=== PATIENT | male | born 1945 | race Hispanic/Latino ===

== ENCOUNTER 2019-02-15 17:00 | Observation (INO) | payer MEDICARE ==
[2019-02-15] MEDS ORDERED: Povidone Iodine Oint 10% Foilpak UD TOP ONE (17:55)
[2019-02-15] MEDS ORDERED: Lidocaine/Epi 1% 1:100000 20 ML IJ STA (17:55)
[2019-02-15] MEDS ORDERED: Povidone Iodine Topical 10% Sol ONE (17:56)
[2019-02-15] MEDS ORDERED: Lidocaine 1% w Epi 1:100,000 Inj ONE (17:56)
[2019-02-15 18:32] LABS: BASO # 0.1 K/uL (0.0-0.2); BASO % 0.7 % (0.0-2.0); EOS # 0.1 K/uL (0.0-0.7); HEMOGLOBIN 17.2 g/dL (12.0-18.0); LYMPH # 0.8 K/uL (1.0-4.3); LYMPH % 9.6 % (20.0-40.0); MEAN CELL VOLUME 96.9 fl (80.0-94.0); MEAN CORPUSCULAR HEMOGLOBIN 32.7 pg (27.0-31.0); MEAN CORPUSCULAR HGB CONC 33.8 g/dL (33.0-37.0); MEAN PLATELET VOLUME 8.1 fl (7.2-11.7); MONO # 0.8 K/uL (0.0-0.8); MONO % 9.4 % (0.0-10.0); NEUT # 6.5 K/uL (1.8-7.0); NEUT % 79.3 % (50.0-75.0); NRBC % 0.2 % (0.0-0.0); PLATELET COUNT 205 K/uL (130-400); RBC 5.26 Mil/uL (4.40-5.90); RED CELL DISTRIBUTION WIDTH 14.6 % (11.5-14.5); WHITE BLOOD COUNT 8.2 K/uL (4.8-10.8)
[2019-02-15 18:41] LABS: INR 2.5; PROTHROMBIN TIME 28.3 Seconds (9.8-13.1)
[2019-02-15 18:43] LABS: PARTIAL THROMBOPLASTIN TIME 50.5 Seconds (25.6-37.1)
[2019-02-15 18:49] LABS: BLOOD UREA NITROGEN 23 mg/dl (9-20); CALCIUM 9.3 mg/dL (8.4-10.2); GFR NON-AFRICAN AMERICAN > 60
[2019-02-15] MEDS ORDERED: Tetanus/Diphtheria Toxoids 0.5 ml Syringe IM ONE ×2 (19:17→21:18)
--- NOTE | 2019-02-15 19:38 | ED PDOC ---
HPI: Head Injury Time Seen by Provider: 02/15/19 17:20 Chief Complaint (Nursing): Trauma Chief Complaint (Provider): head trauma History Per: Patient History/Exam Limitations: no limitations Additional Complaint(s): 73 y/o M with hx of HTN, mechanical valve on coumadin, and HL who was brought in by ambulance after a fall. Pt states that he was washing his hands and face at the sink when he stepped back and slipped on water. He fell backward striking the back of his head on the tile floor. Denies HART, LOC, dizziness, visual changes or N/V. Past Medical History Reviewed: Historical Data, Nursing Documentation, Vital Signs Vital Signs: Last Vital Signs Temp 99.1 F 02/15/19 17:05 Pulse 120 H 02/15/19 18:42 Resp 16 02/15/19 18:42 BP 141/108 H 02/15/19 18:42 Pulse Ox 97 02/15/19 18:42 Primary Care Provider: DoctorCarloz - Medical History PMH: Atrial Fibrillation, HTN, Hyperlipidemia - Family History Family History: States: Unknown Family Hx - Home Medications Home Medications: Ambulatory Orders Medication Instructions Recorded Amlodipine/Atorvastatin 20 mg PO DAILY 02/15/19 [Amlodipine-Atorvast 5-20 mg] Amoxicillin/Potassium Clav 125 mg PO BID 02/15/19 [Amox-Clav 875-125 mg Tablet] Losartan Potassium 50 mg PO DAILY 02/15/19 Warfarin Sodium [Jantoven] 4 mg PO DAILY 02/15/19 - Allergies Allergies/Adverse Reactions: Allergies Allergy/AdvReac Type Severity Reaction Status Date / Time No Known Allergies Allergy Verified 02/15/19 17:07 - Laboratory Results Result Diagrams: 02/15/19 18:27 02/15/19 18:27 Lab Results: PT 28.3 Seconds (9.8-13.1) H 02/15/19 18:27 INR 2.5 02/15/19 18:27 APTT 50.5 Seconds (25.6-37.1) H 02/15/19 18:27 - ECG O2 Sat by Pulse Oximetry: 97 Medical Decision Making Medical Decision Making: CBC, CMP, PT/INR, PTT Head CT w/o contrast Tetanus vaccine scalp laceration repair (see procedure note) Time: 1826 --CT head FINDINGS: BRAIN Chronic periventricular and subcortical microvascular disease is seen. Right basal ganglia old lacunar infarct is seen. VENTRICLES: There is generalized parenchymal atrophy noted as demonstrated by symmetrical dilatation of ventricles and sulci. ORBITS: The orbits are unremarkable. SINUSES AND MASTOIDS: Bilateral ethmoid sinusitis. BONES: No fracture. SOFT TISSUES: Unremarkable. MISCELLANEOUS: No acute intracranial pathology. IMPRESSION: 1. There is generalized parenchymal atrophy. 2. Chronic periventricular and subcortical microvascular disease is seen. 3. 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 4. Bilateral ethmoid sinusitis. 5. No acute intracranial pathology. 19:50: case discussed with Dr. Morales who accepts admission. Care transferred at this time. 20:00: pt noted to be tachycardica. EKG ordered. EK:22: ? aflutter with 2:1 block vs sinus tachycardia, HR 123, incomplete RBBB. Metoprolol 5mg IV push x 1 and Tylenol 975mg PO x [address] Morales called and advised of EKG findings and treatment plan. Procedures - Laceration/Wound Repair Posterior Head Wound Length (cm): 4 Wound's Depth, Shape: superficial, linear Wound Explored: clean Irrigated w/ Saline (ccs): 250 Betadine Prep?: Yes Anesthesia: Lidocaine w/ Epi Volume Anesthetic (ccs): 3 Wound Repaired With: Madi Number of Sutures: 6 Layer Closure?: No Wound Complexity: Simple Disposition - Clinical Impression Clinical Impression: Head trauma - Patient ED Disposition Is Patient to be Admitted: Transfer of Care Discussed With : Ede Morales Doctor Will See Patient In The: Hospital - Disposition Disposition: Transfer of Care Disposition Time: 19:56 Condition: FAIR
[2019-02-15 20:12] LABS: EOSINOPHIL 1 % (0-7); LYMPHOCYTE 12 % (20-50); MONOCYTE 10 % (0-10); NEUTROPHIL 77 % (42-75); TOTAL CELLS COUNTED 100
[2019-02-15 20:13] LABS: PLATELET ESTIMATE NORMAL (NORMAL)
[2019-02-15] MEDS ORDERED: Metoprolol 1 mg/ml Inj IVP ONE ×2 (20:53→20:55)
[2019-02-15] MEDS ORDERED: Pneumococcal 23-Valent Vaccine IM ONE (23:19)
[2019-02-16 02:53] LABS: HEMOGLOBIN 16.4 g/dL (12.0-18.0); MEAN CELL VOLUME 96.6 fl (80.0-94.0); MEAN CORPUSCULAR HEMOGLOBIN 32.3 pg (27.0-31.0); MEAN CORPUSCULAR HGB CONC 33.4 g/dL (33.0-37.0); RBC 5.09 Mil/uL (4.40-5.90); RED CELL DISTRIBUTION WIDTH 14.8 % (11.5-14.5); WHITE BLOOD COUNT 9.2 K/uL (4.8-10.8)
[2019-02-16 03:06] LABS: BLOOD UREA NITROGEN 24 mg/dl (9-20); CALCIUM 8.9 mg/dL (8.4-10.2); GFR NON-AFRICAN AMERICAN > 60
[2019-02-16] MEDS ORDERED: ATORVASTATIN PO SCH (09:00)
[2019-02-16] MEDS ORDERED: AMLODIPINE PO SCH (09:00)
[2019-02-16] MEDS ORDERED: Metoprolol Succinate 25 mg XL Tab PO ONE (09:30)
--- NOTE | 2019-02-16 10:30 | CT ---
Date of service: 02/15/2019 PROCEDURE: CT HEAD WITHOUT CONTRAST. HISTORY: fall with head trauma, on coumadin COMPARISON: None available. TECHNIQUE: Axial computed tomography images were obtained through the head/brain without intravenous contrast. Radiation dose: Total exam DLP = 1339.16 mGy-cm. This CT exam was performed using one or more of the following dose reduction techniques: Automated exposure control, adjustment of the mA and/or kV according to patient size, and/or use of iterative reconstruction technique. FINDINGS: HEMORRHAGE: No intracranial hemorrhage. BRAIN: No mass effect or edema. Atrophy and chronic microvascular ischemic Old right caudate infarct. VENTRICLES: Unremarkable. No hydrocephalus. CALVARIUM: Unremarkable. PARANASAL SINUSES: Unremarkable as visualized. No significant inflammatory changes. MASTOID AIR CELLS: Unremarkable as visualized. No inflammatory changes. OTHER FINDINGS: None. IMPRESSION: No bleed.
[2019-02-16 13:34] LABS: INR 2.6; PROTHROMBIN TIME 30.3 Seconds (9.8-13.1)
--- NOTE | 2019-02-16 13:56 | CP.PCM.HP ---
History of Present Illness - History of Present Illness History of Present Illness: 73 y/o M with hx of HTN, mechanical valve on coumadin, and HLD presented to ED via ambulance after a fall. Patient was washing his hands and face at the sink when he stepped back and slipped on water. He fell backward striking the back of his head on the tile floor. Denied HART, LOC, dizziness, visual changes or N/V. Patient evaluated and treated in ED. CT scan of Head obtained. IMPRESSION: 1. There is generalized parenchymal atrophy. 2. Chronic periventricular and subcortical microvascular disease is seen. 3. 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 4. Bilateral ethmoid sinusitis. 5. No acute intracranial pathology. EKG obtained ? aflutter with 2:1 block vs sinus tachycardia, HR 123, incomplete RBBB Patient seen and examined at bedside. No complaints offered today. No headache, change of vision or n/v. Meds: as per chart Allergies: as per chart Fam hx: non-contributory Present on Admission - Present on Admission Any Indicators Present on Admission: No Review of Systems - Review of Systems All systems: reviewed and no additional remarkable complaints except (mentioned above) Past Patient History - Past Medical History & Family History Past Medical History?: Yes - Past Social History Smoking Status: Never Smoked - CARDIAC Hx Cardiac Disorders: Yes Hx Hypercholesterolemia: Yes Hx Hypertension: Yes - PULMONARY Hx Respiratory Disorders: No - NEUROLOGICAL Hx Neurological Disorder: No - HEENT Hx HEENT Problems: No - RENAL Hx Chronic Kidney Disease: No - ENDOCRINE/METABOLIC Hx Endocrine Disorders: No - HEMATOLOGICAL/ONCOLOGICAL Hx Blood Disorders: No Hx AIDS: No Hx Human Immunodeficiency Virus (HIV): No - INTEGUMENTARY Hx Dermatological Problems: No - MUSCULOSKELETAL/RHEUMATOLOGICAL Hx Musculoskeletal Disorders: Yes Hx Falls: Yes - GASTROINTESTINAL Hx Gastrointestinal Disorders: No - GENITOURINARY/GYNECOLOGICAL Hx Genitourinary Disorders: No - PSYCHIATRIC Hx Substance Use: No - SURGICAL HISTORY Hx Valve Replacement: Yes - ANESTHESIA Hx Anesthesia: Yes Hx Anesthesia Reactions: No Hx Malignant Hyperthermia: No Meds Allergies/Adverse Reactions: Allergies Allergy/AdvReac Type Severity Reaction Status Date / Time No Known Allergies Allergy Verified 02/15/19 17:07 Physical Exam - Constitutional Appears: Well, No Acute Distress - Head Exam Head Exam: NORMAL INSPECTION - Eye Exam Eye Exam: Normal appearance - Neck Exam Neck exam: Positive for: Normal Inspection - Respiratory Exam Respiratory Exam: Clear to Auscultation Bilateral, NORMAL BREATHING PATTERN - Cardiovascular Exam Cardiovascular Exam: +S1, +S2 - GI/Abdominal Exam GI & Abdominal Exam: Normal Bowel Sounds, Soft - Extremities Exam Extremities exam: Positive for: normal inspection - Neurological Exam Neurological exam: Alert, Oriented x3 - Psychiatric Exam Psychiatric exam: Normal Affect, Normal Mood - Skin Skin Exam: Normal Color, Warm Results - Vital Signs Recent Vital Signs: Last Vital Signs Temp 97.3 F L 02/16/19 12:24 Pulse 119 H 02/16/19 12:24 Resp 20 02/16/19 12:24 BP 142/95 H 02/16/19 12:24 Pulse Ox 95 02/16/19 12:24 - Labs Result Diagrams: 02/16/19 02:40 02/16/19 02:40 Labs: Laboratory Results - last 24 hr 02/15/19 02/15/19 02/15/19 18:27 18:27 18:27 WBC 8.2 RBC 5.26 Hgb 17.2 Hct 51.0 MCV 96.9 H MCH 32.7 H MCHC 33.8 RDW 14.6 H Plt Count 205 MPV 8.1 Neut % (Auto) 79.3 H Lymph % (Auto) 9.6 L Rowan % (Auto) 9.4 Eos % (Auto) 1.0 Baso % (Auto) 0.7 Neut # (Auto) 6.5 Lymph # (Auto) 0.8 L Rowan # (Auto) 0.8 Eos # (Auto) 0.1 Baso # (Auto) 0.1 Neutrophils % (Manual) 77 H Lymphocytes % (Manual) 12 L Monocytes % (Manual) 10 Eosinophils % (Manual) 1 Platelet Estimate Normal PT 28.3 H INR 2.5 APTT 50.5 H Sodium 135 Potassium 5.1 H Chloride 100 Carbon Dioxide 27 Anion Gap 13 BUN 23 H Creatinine 1.1 Est GFR ( Amer) > 60 Est GFR (Non-Af Amer) > 60 Random Glucose 104 Calcium 9.3 Troponin I 0.0300 02/16/19 02/16/19 02/16/19 02:28 02:40 02:40 WBC 9.2 RBC 5.09 Hgb 16.4 Hct 49.1 MCV 96.6 H MCH 32.3 H MCHC 33.4 RDW 14.8 H Plt Count 203 MPV Neut % (Auto) Lymph % (Auto) Rowan % (Auto) Eos % (Auto) Baso % (Auto) Neut # (Auto) Lymph # (Auto) Rowan # (Auto) Eos # (Auto) Baso # (Auto) Neutrophils % (Manual) Lymphocytes % (Manual) Monocytes % (Manual) Eosinophils % (Manual) Platelet Estimate PT INR APTT Sodium 136 Potassium 4.2 Chloride 102 Carbon Dioxide 24 Anion Gap 14 BUN 24 H Creatinine 0.9 Est GFR ( Amer) > 60 Est GFR (Non-Af Amer) > 60 Random Glucose 101 Calcium 8.9 Troponin I 0.0270 02/16/19 13:21 WBC RBC Hgb Hct MCV MCH MCHC RDW Plt Count MPV Neut % (Auto) Lymph % (Auto) Rowan % (Auto) Eos % (Auto) Baso % (Auto) Neut # (Auto) Lymph # (Auto) Rowan # (Auto) Eos # (Auto) Baso # (Auto) Neutrophils % (Manual) Lymphocytes % (Manual) Monocytes % (Manual) Eosinophils % (Manual) Platelet Estimate PT 30.3 H INR 2.6 APTT Sodium Potassium Chloride Carbon Dioxide Anion Gap BUN Creatinine Est GFR ( Amer) Est GFR (Non-Af Amer) Random Glucose Calcium Troponin I Assessment & Plan (1) Fall Status: Acute (2) H/O mitral valve replacement with mechanical valve Status: Acute (3) HTN (hypertension) Status: Acute (4) Head trauma Status: Acute - Assessment and Plan (Free Text) Plan: available diagnostic data reviewed monitor labs monitor vitals obtain repeat head CT scan cardio consulted, appreciate recommendations telemetry monitoring rest of plan as ordered
--- NOTE | 2019-02-16 15:23 | CT ---
Date of service: 02/16/2019 PROCEDURE: CT HEAD WITHOUT CONTRAST. HISTORY: s/p head trauma, on warfarin COMPARISON: 02/15/2019 TECHNIQUE: Axial computed tomography images were obtained through the head/brain without intravenous contrast. Radiation dose: Total exam DLP = 1036.57 mGy-cm. This CT exam was performed using one or more of the following dose reduction techniques: Automated exposure control, adjustment of the mA and/or kV according to patient size, and/or use of iterative reconstruction technique. FINDINGS: HEMORRHAGE: No intracranial hemorrhage. BRAIN: No mass effect or edema. Chronic basal ganglia lacunar infarcts. VENTRICLES: Unremarkable. No hydrocephalus. CALVARIUM: Unremarkable. PARANASAL SINUSES: Unremarkable as visualized. No significant inflammatory changes. MASTOID AIR CELLS: Unremarkable as visualized. No inflammatory changes. OTHER FINDINGS: None. IMPRESSION: No significant interval change. No acute hemorrhage.
--- NOTE | 2019-02-16 19:47 | CARD ---
APPROVED REPORT Date of service: 02/15/2019 EKG Measurement Heart [id number] PA 140P [id number] <Conclusion> Sinus tachycardia Moderate voltage criteria for LVH, may be normal variant Inferior infarct, age undetermined Abnormal ECG
[2019-02-17 00:46] VITALS: RESP 20
[2019-02-17 07:59] VITALS: PULSE 122; O2SAT 94
[2019-02-17] MEDS ORDERED: Metoprolol Succinate 50 mg XL Tab PO ONE (11:01)
--- NOTE | 2019-02-17 11:40 | CARD ---
APPROVED REPORT Date of service: 02/16/2019 EKG Measurement Heart [id number] 140P [id number] <Conclusion> Sinus tachycardia with occasional premature ventricular complexes Incomplete right bundle branch block Voltage criteria for left ventricular hypertrophy Inferior infarct, age undetermined Abnormal ECG
--- NOTE | 2019-02-17 11:42 | CP.PCM.CON ---
Past Patient History - Past Medical History & Family History Past Medical History?: Yes - Past Social History Smoking Status: Never Smoked - CARDIAC Hx Cardiac Disorders: Yes Hx Hypercholesterolemia: Yes Hx Hypertension: Yes - PULMONARY Hx Respiratory Disorders: No - NEUROLOGICAL Hx Neurological Disorder: No - HEENT Hx HEENT Problems: No - RENAL Hx Chronic Kidney Disease: No - ENDOCRINE/METABOLIC Hx Endocrine Disorders: No - HEMATOLOGICAL/ONCOLOGICAL Hx Blood Disorders: No Hx AIDS: No Hx Human Immunodeficiency Virus (HIV): No - INTEGUMENTARY Hx Dermatological Problems: No - MUSCULOSKELETAL/RHEUMATOLOGICAL Hx Musculoskeletal Disorders: Yes Hx Falls: Yes - GASTROINTESTINAL Hx Gastrointestinal Disorders: No - GENITOURINARY/GYNECOLOGICAL Hx Genitourinary Disorders: No - PSYCHIATRIC Hx Substance Use: No - SURGICAL HISTORY Hx Valve Replacement: Yes - ANESTHESIA Hx Anesthesia: Yes Hx Anesthesia Reactions: No Hx Malignant Hyperthermia: No Meds Allergies/Adverse Reactions: Allergies Allergy/AdvReac Type Severity Reaction Status Date / Time No Known Allergies Allergy Verified 02/15/19 17:07 - Medications Medications: Current Medications Amlodipine Besylate (Norvasc) 5 mg PO DAILY [facility] Last Admin: 02/17/19 09:24 Dose: 5 mg Atorvastatin Calcium (Lipitor) 20 mg PO DAILY [facility] Last Admin: 02/17/19 09:26 Dose: 20 mg Losartan Potassium (Cozaar) 50 mg PO DAILY [facility] Last Admin: 02/17/19 09:25 Dose: 50 mg Results - Vital Signs Recent Vital Signs: Last Vital Signs Temp 97.9 F 02/17/19 07:58 Pulse 122 H 02/17/19 09:24 Resp 20 02/17/19 07:58 BP 138/89 02/17/19 09:24 Pulse Ox 94 L 02/17/19 07:58 - Labs Result Diagrams: 02/16/19 02:40 02/16/19 02:40 Labs: Laboratory Results - last 24 hr 02/16/19 02/17/19 13:21 02:00 PT 30.3 H INR 2.6 Troponin I 0.0250 Assessment & Plan (1) Fall Status: Acute (2) H/O mitral valve replacement with mechanical valve Status: Acute (3) Sinus tachycardia Status: Acute (4) HTN (hypertension) Status: Acute - Assessment and Plan (Free Text) Plan: PT SEEING DR LEMONS IN FOR CARDIOLOGY. HIS VALVE WAS REPLACED IN 2004. PT STATES HIS FALL WAS DUE TO A SLIPPERY FLOOR. PT IS MILDLY PRERENAL. NO SYMPTOMS. HE IS PERSISTENTLY TACHYCARDIC AWAIT ECHO CONT CURRENT MEDS.
[2019-02-17 11:53] VITALS: BP 138/96; TEMP 97.6
--- NOTE | 2019-02-17 13:35 | CARD ---
APPROVED REPORT Date of service: 02/17/2019 EXAM: Two-dimensional and M-mode echocardiogram with Doppler and color Doppler. Other Information Quality : GoodRhythm : Tachycardia INDICATION Mitral Valve Disease Surgery/Intervention Status/Post Mitral Valve Replacement: Mechanical Type: [facility] 2D DIMENSIONS IVSd1.59 (0.7-1.1cm)LVDd5.00 (3.9-5.9cm) LVOT Diameter2.31 (1.8-2.4cm)PWd1.31 (0.7-1.1cm) IVSs1.70 (0.8-1.2cm)LVDs3.79 (2.5-4.0cm) FS (%) 24.2 %PWs1.62 (0.8-1.2cm) M-Mode DIMENSIONS Left Atrium (MM)5.19 (2.5-4.0cm)IVSd1.26 (0.7-1.1cm) Aortic Root2.68 (2.2-3.7cm)LVDd5.94 (4.0-5.6cm) Aortic Cusp Exc.1.69 (1.5-2.0cm)PWd1.08 (0.7-1.1cm) IVSs1.59 cmFS (%) 28 % LVDs4.27 (2.0-3.8cm)PWs1.32 cm Aortic Valve AoV Peak Ifpogmrt80.4cm/sAoV VTI11.8cmAO Peak GR.3mmHg LVOT Peak Mubdjxyf77.7cm/sLVOT VTI10.88cmAO Mean GR.2mmHg DAE (VMAX)1.50wq0QZK (VTI)1.75cm2 Mitral Valve E/A ratio0.0 TDI E/Lateral E'0.0E/Medial E'0.0 LEFT VENTRICLE The left ventricle is normal size. There is mild concentric left ventricular hypertrophy. The systolic function is moderately to severely impaired. The estimated ejection fraction is 30-35% There is global hypokinesis of the left ventricle. The left ventricular diastolic function assessment is inconclusive. No left ventricle thrombus noted on this study. There is no ventricular septal defect visualized. There is no left ventricular aneurysm. There is no mass noted in the left ventricle. RIGHT VENTRICLE The right ventricle is normal size. There is normal right ventricular wall thickness. The right ventricular systolic function is normal. ATRIA The left atrium is severely dilated. The right atrium size is normal. There is echogenic structure noted in right atrium consistent with central line or pacerwire or artifact. Correlate clinically. The interatrial septum is intact with no evidence for an atrial septal defect. AORTIC VALVE The aortic valve is normal in structure. Mild aortic regurgitation is present. There is no aortic valvular stenosis. There is no aortic valvular vegetation. MITRAL VALVE There is mechanical mitral valve. There is no evidence of mitral valve prolapse. There is no mitral valve stenosis. There is no mitral valve regurgitation noted. TRICUSPID VALVE The tricuspid valve is normal in structure. There is mild tricuspid valve regurgitation noted. There is no tricuspid valve prolapse or vegetation. There is no tricuspid valve stenosis. PULMONIC VALVE The pulmonary valve is normal in structure. There is no pulmonic valvular regurgitation. There is no pulmonic valvular stenosis. GREAT VESSELS The aortic root is normal in size. The ascending aorta is normal in size. The pulmonary artery is normal. The IVC is normal in size and collapses >50% with inspiration. PERICARDIAL EFFUSION There is no pericardial effusion. There is no pleural effusion. <Conclusion> Technically difficult study The systolic function is moderately to severely impaired. The estimated ejection fraction is 30-35% There is global hypokinesis of the left ventricle. The left ventricular diastolic function assessment is inconclusive. The left atrium is severely dilated. Mild aortic regurgitation is present. There is mechanical mitral valve in place. There is mild tricuspid valve regurgitation noted.
[2019-02-17 15:38] LABS: INR 2.3; PROTHROMBIN TIME 26.7 Seconds (9.8-13.1)
[2019-02-18] MEDS ORDERED: Metoprolol Succinate 50 mg XL Tab PO ONE (10:44)
== END 2019-02-17 16:55 | disposition home or self-care (01) ==
LOC: H.ER 17:00 → H.ERHOLD 19:56 → H.TEL 21:59
PROVIDERS: ADMIT Family Medicine; ATTEND Family Medicine
DX: S01.01XA Laceration without foreign body of scalp, initial encounter (principal); W01.0XXA Fall on same level from slipping, tripping and stumbling without subsequent striking against object, initial encounter; Z79.01 Long term (current) use of anticoagulants; Z86.73 Personal history of transient ischemic attack (TIA), and cerebral infarction without residual deficits; Z95.2 Presence of prosthetic heart valve; Z79.899 Other long term (current) drug therapy; E78.00 Pure hypercholesterolemia, unspecified; E78.5 Hyperlipidemia, unspecified; I10 Essential (primary) hypertension; I45.10 Unspecified right bundle-branch block; I48.91 Unspecified atrial fibrillation; I48.92 Unspecified atrial flutter; J32.2 Chronic ethmoidal sinusitis; Z23 Encounter for immunization
CPT/HCPCS: 12002; 36415; 70450; 80048; 84484; 85025; 85027; 85610; 85730; 90471; 90714; 90732; 93005; 93306; 96374; 99285; G0009; G0378